=== PATIENT | female | born 2005 | race Two or more races ===

== ENCOUNTER 2025-01-12 19:48 | Emergency (ER) | payer MEDICAID, OTHER ==
[~2025-01-12] VITALS: Ht 157.5 cm; Wt 63.5 kg
[2025-01-12 21:16] LABS: Basophils # (auto) 0 10 ^3/uL (0-0.2); Basophils % (auto) 0.5 % (0.0-2.0); Eosinophils # (auto) 0.2 10 ^3/uL (0-0.8); Eosinophils % (auto) 1.9 % (0.0-7.0); Hematocrit 31.7 % (36.0-46.0); Hemoglobin 10.5 g/dL (12.2-16.2); Lymphocytes # (auto) 1.1 10 ^3/uL (0.4-5.4); Lymphocytes % (auto) 12.8 % (10.0-50.0); Mean Corpuscular Hemoglobin 24.9 pg (28.0-32.0); Mean Corpuscular Hgb Conc. 33.3 g/dL (32.0-36.0); Mean Corpuscular Volume 74.8 fL (80.0-100.0); Monocytes # (auto) 0.3 10 ^3/uL (0-1.3); Monocytes % (auto) 3.5 % (0.0-12.0); Neutrophils % (auto) 81.3 % (37.0-80.0); Platelet Count (auto) 286 10^3/uL (140-450); Red Blood Cells 4.23 10^6/uL (4.0-5.20); Red Cell Distribution Width 16.3 % (11.8-14.3); White Blood Cell 8.6 10^3/uL (4.4-10.8)
--- NOTE | 2025-01-12 21:17 | ED.PDOC ---
History of Present Illness HPI Comments This is a 19-year-old female who comes in with chief complaint of near syncopal episode as well as dizziness while she was in the shower today. The patient states that she felt fine and then went into the shower and felt like she was about to pass out. She quickly left the shower and went to the bed. When the patient was found by the paramedics she was sitting up in bed with a blood pressure of 86/54. She was complaining of a headache that was a 6/10. She denies any shortness a breath. She did eat one meal earlier today at approximately 5:00 p.m.. Upon arrival, the patient's headache seems to be getting better. Chief Complaint: General Weakness Time Seen by MD: 19:59 Reviewed Notes: Nurses Notes, Cigar Bander Notes, Medications, Allergies (No allergies to medications) Information Source: Patient, Emergency Med Personnel Mode of Arrival: EMS Severity: Moderate Timing: Minutes Duration: Since onset Prehospital treatment: Parts Counter Clerk, IVF (Normal saline bolus) Associated signs and symptoms Associated dizziness with the near-syncope as well as headache Past Medical History PAST MEDICAL HISTORY: Denies Surgical History: Denies all surgeries EXECUTIVE ADMINISTRATOR History: No Pertinent EXECUTIVE ADMINISTRATOR History Family History Family History: Family hx of DM Social History Smoker: Non-Smoker Alcohol: Denies ETOH Use Drugs: Marijuana Lives In: Home Constitutional: reports: weakness, others (Dizziness); denies: chills, diaphoresis, fatigue, fever, malaise, sweats EENTM: denies: blurred vision, double vision, ear bleeding, ear discharge, ear drainage, ear pain, ear ringing, eye pain, eye redness, hearing loss, mouth pain, mouth swelling, nasal discharge, nose bleeding, nose congestion, nose pain, photophobia, tearing, throat pain, throat swelling, voice changes, others Respiratory: denies: cough, hemoptysis, orthopnea, SOB at rest, shortness of breath, SOB with excertion, stridor, wheezing, others Cardiovascular: reports: syncope (Near-syncope); denies: chest pain, dizzy spells, diaphoresis, Dyspnea on exertion, edema, irregular heart beat, left arm pain, lightheadedness, palpitations, PND, others Gastrointestinal: denies: abdomen distended, abdominal pain, blood streaked bowels, constipated, diarrhea, dysphagia, difficulty swallowing, hematemesis, melena, nausea, poor appetite, poor fluid intake, rectal bleeding, rectal pain, vomiting, others Genitourinary: denies: abnormal vagina bleeding, burning, dyspareunia, dysuria, flank pain, frequency, hematuria, incontinence, pain, , vagina discharge, urgency, others Neurological: reports: headache; denies: dizziness, fainting, left sided numbness, left sided weakness, numbness, paresthesia, pre-existing deficit, right sided numbness, right sided weakness, seizure, speech problems, tingling, tremors, weakness, others Musculoskeletal: denies: back pain, gout, joint pain, joint swelling, muscle pain, muscle stiffness, neck pain, others Integumetry: denies: bruises, change in color, change in hair/nails, dryness, laceration, lesions, lumps, rash, wounds, others Allergic/Immunocompromised: denies: Difficulty Healing, Frequent Infections, Hives, Itching, others Hematologic/Lymphatic: denies: anemia, blood clots, easy bleeding, easy bruising, swollen glands, others Endocrine: denies: excessive hunger, excessive sweating, excessive thirst, excessive urination, flushing, intolerance to cold, intolerance to heat, unexplained weight gain, unexplained weight loss, others Psychiatric: denies: anxiety, bipolar disorder, depression, hopeless, panic disorder, schizophrenia, sleepless, suicidal, others Physical Exam General Appearance: Moderate Distress HEENT: Pale [place]juntivae (L), Pale Conjuntivae (R), Pharynx Normal, TMs Normal Neck: Full Range of Motion, Non-Tender, Normal, Normal Inspection Respiratory: Chest Non-Tender, Lungs Clear, No Accessory Muscle Use, No Respiratory Distress, Normal Breath Sounds Cardiovascular: No Edema, No JVD, No Murmur, No Gallop, Normal Peripheral Pulses, Regular Rate/Rhythm Breast Exam: Deferred Gastrointestinal: No Organomegaly, Non Tender, No Pulsatile Mass, Normal Bowel Sounds, Soft Genitalia: Deferred Pelvic: Deferred Rectal: Deferred Extremities: No calf tenderness, Normal capillary refill, Normal inspection, Normal range of motion, Non-tender, No pedal edema Musculoskeletal : Apperance: Normal Neurologic: Alert, federal aid coordinator II-XII nml as Tested, Motor Weakness, Normal Affect, Normal Mood, No Sensory Deficits Cerebellar Function: Normal Reflexes: Normal Skin: Dry, Pallor, Warm Lymphatic: No Adenopathy Was a procedure done? Was a procedure done?: No EKG EKG : Pulse Rate (adult): 95 [place]: Normal Cardiac Rhythm: NSR Differential Dx Considerations may include: Generalized weakness, near-syncope to be, ectopic , CVA, TIA X-Ray, Labs, Meds, VS Vital Signs Date Time Temp Pulse Resp B/P (MAP) Pulse Ox O2 Delivery O2 Flow Rate FiO2 01/12/25 20:03 98.4 65 20 96/66 (76) 96 98.4 Lab Test 01/12/25 20:42 Range/Units White Blood Count 8.6 4.4-10.8 10^3/uL Red Blood Count 4.23 4.0-5.20 10^6/uL Hemoglobin 10.5 L 12.2-16.2 g/dL Hematocrit 31.7 L 36.0-46.0 % Mean Corpuscular Volume 74.8 L 80.0-100.0 fL Mean Corpuscular Hemoglobin 24.9 L 28.0-32.0 pg Mean Corpuscular Hemoglobin Concent 33.3 32.0-36.0 g/dL Red Cell Distribution Width 16.3 H 11.8-14.3 % Platelet Count 286 140-450 10^3/uL Mean Platelet Volume 8.0 6.9-10.8 fL Neutrophils (%) (Auto) 81.3 H 37.0-80.0 % Lymphocytes (%) (Auto) 12.8 10.0-50.0 % Monocytes (%) (Auto) 3.5 0.0-12.0 % Eosinophils (%) (Auto) 1.9 0.0-7.0 % Basophils (%) (Auto) 0.5 0.0-2.0 % Neutrophils # (Auto) 7.0 1.6-8.6 10 ^3/uL Lymphocytes # (Auto) 1.1 0.4-5.4 10 ^3/uL Monocytes # (Auto) 0.3 0-1.3 10 ^3/uL Eosinophils # (Auto) 0.2 0-0.8 10 ^3/uL Basophils # (Auto) 0 0-0.2 10 ^3/uL Nucleated Red Blood Cells 0.0 % Sodium Level 139 136-145 mmol/L Potassium Level 3.7 3.5-5.1 mmol/L Chloride Level 109 H 98-107 mmol/L Carbon Dioxide Level 24 20-31 mmol/L Anion Gap 6 5-15 Blood Urea Nitrogen 9 9-23 mg/dL Creatinine 0.80 0.550-1.02 mg/dL Glomerular Filtration Rate Calc 107 >90 mL/min BUN/Creatinine Ratio 11.3 10.0-20.0 Serum Glucose 138 H 74-106 mg/dL Calcium Level 9.2 8.7-10.4 mg/dL Beta HCG, Quantitative 0.5 L 1.5-4.2 mIU/mL Plasma/Serum Blood Alcohol < 3.0 <10 mg/dL IV Hep-Lock was established. The patient was given normal saline as a bolus The patient's alcohol level is negative The quantitative hCG is negative The patient's CBC shows anemia with a hemoglobin of 10.5 and hematocrit of 31.7 The CAT scan of the head is pending The patient will be signed out to Dr. Minaya Images Reviewed?: Images reviewed and evaluated by me Time of 1ST Reevaluation: 21:17 Reevaluation 1ST: Unchanged Patient Education/Counseling: Diagnosis, Treatment, Prognosis Family Education/Counseling: No Family Present Departure 1 Departure Time of Disposition: 22:06 Impression: Primary Impression: Episode of syncope Qualified Codes: R55 - Syncope and collapse Disposition: 30 STILL A PATIENT Condition: Fair Critical Care Note Critical Care Time?: No Stability Stability form required: No Heart Score Heart Score: Heart Score Response (Comments) Value History N/A 0 EKG N/A 0 Age N/A 0 Risk Factors N/A 0 Troponin N/A 0 Total 0 GABE ACKERMAN MD January 12, 2025 21:17
[2025-01-12 21:23] LABS: Anion Gap 6 (5-15); Carbon Dioxide 24 mmol/L (20-31); Potassium 3.7 mmol/L (3.5-5.1); Sodium 139 mmol/L (136-145)
[2025-01-12 21:24] LABS: Calcium 9.2 mg/dL (8.7-10.4)
[2025-01-12 21:29] LABS: BUN/Creatinine Ratio 11.3 (10.0-20.0)
[2025-01-12 21:31] LABS: Blood Alcohol < 3.0 mg/dL (<10); Blood Urea Nitrogen 9 mg/dL (9-23); Chloride 109 mmol/L (98-107); Glucose 138 mg/dL (74-106)
--- NOTE | 2025-01-12 22:11 | DVH ---
EXAM: CT HEAD WITHOUT CONTRAST INDICATION: near syncope TECHNIQUE: CT of the head without intravenous contrast. Radiation Dose Information: CT Dose: CTDI volume is 49.88 mGy. Dose-length product is 799.72 mGy*cm The dose indicators for CT are the volume Computed Tomography (CT) Dose Index (CTDIvol) and the Dose Length Product (DLP), and are measured in units of mGy and mGy-cm, respectively. These indicators are not patient dose, but values generated from the CT scanner acquisition factors. The report includes radiation exposure data for exposures received during this examination. COMPARISON: None FINDINGS: There is no evidence of acute intracranial hemorrhage, extra-axial collection, mass effect, midline s hift, herniation or hydrocephalus. The ventricles, sulci and cisterns are age appropriate. The gresham-white differentiation is intact. Patchy periventricular and subcortical white matter hypoattenuation is nonspecific but may be related to small vessel ischemic disease. The visualized paranasal sinuses and mastoid air cells are clear. The surrounding soft tissues and osseous structures are unremarkable. IMPRESSION: 1. No acute intracranial hemorrhage 2. No CT findings of territorial ischemia. 3. No CT findings of displaced skull fracture. 4. No paranasal sinus or mastoid disease.
[2025-01-12 22:20] VITALS: BP 97/55; PULSE 65; RESP 18; TEMP 98.7; O2SAT 97
[2025-01-13] MEDS: SODIUM CHLORIDE 0.9% 1,000 ML IVB ONE (01:21)
== END 2025-01-13 00:58 | disposition left against medical advice (07) ==
LOC: EDBD 19:48 → ER 19:48
DX: R55 Syncope and collapse (principal); R42 Dizziness and giddiness; R51.9 Headache, unspecified; F12.90 Cannabis use, unspecified, uncomplicated
CPT/HCPCS: 36415; 70450; 80048; 80320; 84702; 85025